=== PATIENT | male | born 1970 | race Caucasian/White ===

== ENCOUNTER → 2016-09-16 | Outpatient (CLI) | payer OTHER ==
[~2016-09-16] MED LIST: AMOX TR-K CLV1 EAC4 PO; ASPIR-LOW81 M1 PO; EFFEXOR XR150 MG PO; EFFEXOR75 MG PO; ENDOCET 5-3251 EACH PO; GLUCOSAMINE &1 EACH PO; IBUPROFEN800 MG PO; KEFLEX500 MG PO; LITHIUM CARBON150 MG PO; METOPROLOL SUCC50 MG PO; NEURONTIN800 MG PO; OMEPRAZOLE20 MG PO; PERCOCET 5/31 TABLET PO; PRILOSEC20 MG PO; PROZAC40 MG PO; VEETIDS 500500 MG PO; ZESTRIL,PRINIVI10 MG PO; ZOCOR40 MG PO; ZOFRAN8 MG PO
== END | disposition home or self-care (01) ==
LOC: CDC 15:35
DX: Z01.810 Encounter for preprocedural cardiovascular examination (principal); K40.90 Unilateral inguinal hernia, without obstruction or gangrene, not specified as recurrent
CPT/HCPCS: 93000

== ENCOUNTER → 2017-04-14 | Outpatient (CLI) | payer OTHER ==
[~2017-04-14] MED LIST changes: +MOTRIN800 MG PO; +NEXIUM 24HR20 M1 PO; +ZESTRIL10 MG PO
== END | disposition home or self-care (01) ==
LOC: CDC 02-23 14:30
DX: K40.90 Unilateral inguinal hernia, without obstruction or gangrene, not specified as recurrent (principal)
CPT/HCPCS: 93000

== ENCOUNTER 2017-04-26 05:58 | Day surgery (SDC) | payer OTHER ==
[~2017-04-26] VITALS: Ht 195.6 cm; Wt 191.3 kg
[~2017-04-26 05:58] MED LIST changes: +COQ-10100 MG PO; +FLONASE SENSIM9.9 ML BOTH NARES; +LUNESTA3 MG PO; +MAGNESIUM PO; +OPC PO; +ROBAXIN500 MG PO; +VITAMIN D2000 UNI1 PO
[2017-04-26 06:50] VITALS: BP 146/89
[2017-04-26] MEDS ORDERED: COLACE100 MG PO (09:37)
[2017-04-26] MEDS ORDERED: PERCOCET 5/31 TABLET PO (09:37)
[2017-04-26 11:34] VITALS: BP 116/58
[2017-04-26 12:35] VITALS: BP 102/58
== END 2017-04-26 12:35 | disposition home or self-care (01) ==
LOC: SDC 05:58
PROC: 0YU54KZ Supplement Right Inguinal Region with Nonautologous Tissue Substitute, Percutaneous Endoscopic Approach (ICD-10-PCS; principal; 2017-04-26)
DX: K40.90 Unilateral inguinal hernia, without obstruction or gangrene, not specified as recurrent (principal); I10 Essential (primary) hypertension; I34.1 Nonrheumatic mitral (valve) prolapse; G47.30 Sleep apnea, unspecified; Z82.49 Family history of ischemic heart disease and other diseases of the circulatory system; Z87.891 Personal history of nicotine dependence
CPT/HCPCS: J0131; J0330; J0690; J1100; J1170; J1885; J2250; J2405; J2710; J2765; J3010

== ENCOUNTER 2017-07-19 18:26 | Emergency (ER) | payer OTHER ==
[~2017-07-19] VITALS: Ht 195.6 cm; Wt 142.2 kg
[~2017-07-19 18:26] MED LIST changes: +COLACE100 MG PO
[2017-07-19 19:00] LABS: HEMATOCRIT 42.5 % (38.0-50.0); MCHC 34.1 G/DL (30.0-36.0); MEAN PLAT.VOLUME 11.6 uM^3 (9.0-12.4); PLATELET COUNT 196 K/uL (156-360); RBC DIS.WIDTH-SD 45.1 % (39-53); RED BLOOD COUNT 4.83 M/uL (4.00-5.50); WHITE BLOOD COUNT 7.9 K/uL (4.1-10.2)
[2017-07-19 19:11] LABS: CHLORIDE 107 mEq/L (99-109); POTASSIUM 3.7 mEq/L (3.7-5.4); SODIUM 140 mEq/L (136-147)
[2017-07-19 19:12] LABS: GLUCOSE 93 mg/dL (70-99)
[2017-07-19 19:14] LABS: ANION GAP 10 MEQ/L (2-14)
[2017-07-19 19:16] LABS: GFR ESTIMATE (CALCULATED) > 59 mL/min/
[2017-07-19 19:17] LABS: UREA NITROGEN (BUN) 11 mg/dL (9-23)
[2017-07-19 19:20] LABS: TROP-I INTERPRETATION NEGATIVE; TROPONIN-I < 0.01 ng/mL (0.0-0.30)
[2017-07-19 21:47] LABS: TROP-I INTERPRETATION NEGATIVE; TROPONIN-I < 0.01 ng/mL (0.0-0.30)
[2017-07-19 22:25] VITALS: BP 135/75
== END 2017-07-19 22:36 | disposition home or self-care (01) ==
LOC: EME 18:26
PROVIDERS: Emergency Medicine
DX: R07.89 Other chest pain (principal); I25.10 Atherosclerotic heart disease of native coronary artery without angina pectoris; E78.5 Hyperlipidemia, unspecified; F32.9 Major depressive disorder, single episode, unspecified; Z87.891 Personal history of nicotine dependence; Z87.442 Personal history of urinary calculi
CPT/HCPCS: 71020; 80048; 84484; 85027; 93005; 99281; 99285; J1885

== ENCOUNTER → 2017-11-24 | Outpatient (CLI) | payer OTHER ==
[~2017-11-24] VITALS: Ht 195.6 cm; Wt 145.5 kg
[~2017-11-24] MED LIST changes: +ERGOCALCIF50000 UNIT PO; +LIORESAL10 MG PO; +NON-ASPIRIN PA500 MG PO; +PROAIR HFA8.5 GM IH; -ROBAXIN500 MG PO; -VITAMIN D2000 UNI1 PO
== END | disposition home or self-care (01) ==
LOC: AMB 13:19
DX: Z12.11 Encounter for screening for malignant neoplasm of colon (principal); K44.9 Diaphragmatic hernia without obstruction or gangrene; K21.0 Gastro-esophageal reflux disease with esophagitis; Z86.010 Personal history of colon polyps; Z82.49 Family history of ischemic heart disease and other diseases of the circulatory system; Z82.5 Family history of asthma and other chronic lower respiratory diseases; Z80.42 Family history of malignant neoplasm of prostate
CPT/HCPCS: J1885; J2250; J7643

== ENCOUNTER → 2018-03-22 | Outpatient (CLI) | payer OTHER | END | disposition home or self-care (01) | LOC: CDC 10:40 | DX: M25.562 Pain in left knee (principal); M17.12 Unilateral primary osteoarthritis, left knee | CPT/HCPCS: 93000 ==

== ENCOUNTER 2018-04-19 13:48 | Day surgery (SDC) | payer OTHER ==
[~2018-04-19] VITALS: Ht 195.6 cm; Wt 137.3 kg
[~2018-04-19 13:48] MED LIST changes: +AMRIX30 MG PO; +CELEBREX100 MG PO; +FLUOXETINE HCL10 M1 PO; +LISINOPRIL5 MG PO; +LUNESTA1 MG PO; +TIZANIDINE HCL4 M1 PO
[2018-04-19 19:30] VITALS: BP 147/71
[2018-04-19 20:17] VITALS: BP 133/64
== END 2018-04-19 20:27 | disposition home or self-care (01) ==
LOC: SDC 13:48
DX: S83.242A Other tear of medial meniscus, current injury, left knee, initial encounter (principal); M67.52 Plica syndrome, left knee; M17.12 Unilateral primary osteoarthritis, left knee; I10 Essential (primary) hypertension; Z87.891 Personal history of nicotine dependence; K21.9 Gastro-esophageal reflux disease without esophagitis; G47.30 Sleep apnea, unspecified
CPT/HCPCS: 93005; J0171; J0330; J0690; J1100; J1170; J2405; J2765; J3010; Q0175